=== PATIENT | male | born 1955 | race Caucasian/White ===

== ENCOUNTER 2017-07-06 17:14 | Inpatient (IN) | payer OTHER ==
[2017-07-06] VITALS (11 sets, daily range): BP systolic 91–124; BP diastolic 57–69; PULSE 101–115; RESP 18–20; TEMP 99.1–99.2; O2SAT 92–95
[~2017-07-06] VITALS: Ht 177.8 cm; Wt 78.3 kg
[2017-07-06] MEDS ORDERED: ALPR.5 PO (17:42)
[2017-07-06] MEDS ORDERED: BYST5TAB2 PO (17:42)
--- NOTE | 2017-07-06 17:59 | PD ---
HPI Chief Complaint: Chest Pain Time Seen by Provider: 17:40 Travel History International Travel<30 days: No Contact w/Intl Traveler<30days: No Traveled to known affect area: No History of Present Illness HPI This patient complains of chest pain. Location is left lower chest. Pleuritic in nature, worse with a deep breath. No alleviating factors. Also seems worse when he lies flat. Symptoms are nonexertional. He is a chronic smoker and has a chronic smoker cough but denies productivity to the cough or fever. He flew to [place] from [place] 2 days ago. No chest wall injury. Denies history of cardiac disease. Symptoms are moderately severe. Duration is 5 hours PFSH Past Medical History Medical History: Denies Significant Hx Influenza Vaccination: No Past Surgical History Surgical History: No Previous Surgery Social History Alcohol Use: Yes (occas) Tobacco Use: Yes (3/4 ppd) Substance Use: No Allergies-Medications (Allergen,Severity, Reaction): Coded Allergies: NSAIDS (Non-Steroidal Anti-Inflamma (Verified Allergy, Intermediate, Swelling, 07/06/17) Penicillins (Verified Allergy, Unknown, 07/06/17) Reported Meds & Prescriptions Reported Meds & Active Scripts Active Reported Xanax (Alprazolam) 0.5 Mg Tab 0.5 Mg PO Q8H PRN Bystolic (Nebivolol) 5 Mg Tab 5 Mg PO DAILY Review of Systems General / Constitutional: No: Fever Eyes: No: Visual changes HENT: No: Headaches Cardiovascular: Positive: Chest Pain or Discomfort, Tachycardia Respiratory: Positive: Cough, No: Shortness of Breath Gastrointestinal: No: Abdominal Pain Genitourinary: No: Dysuria Musculoskeletal: No: Pain Skin: No Rash Neurologic: No: Weakness Psychiatric: No: Depression Endocrine: No: Polydipsia Hematologic/Lymphatic: No: Easy Bruising Physical Exam Narrative GENERAL: Well-nourished, well-developed patient with pleuritic chest pain . SKIN: Focused skin assessment reveals no rash and nodules. Skin is Warm and dry. HEAD: Atraumatic. Normocephalic. EYES: Pupils equal and round. No scleral icterus. No injection or drainage. ENT: No nasal bleeding or discharge. Mucous membranes pink and moist. NECK: Trachea midline. No JVD. CARDIOVASCULAR: Regular rate and rhythm. No murmur appreciated. RESPIRATORY: No accessory muscle use. Diminished breath sounds but Clear to auscultation. Breath sounds equal bilaterally. GASTROINTESTINAL: Abdomen soft, non-tender, nondistended. Hepatic and splenic margins not palpable. MUSCULOSKELETAL: No obvious deformities. No clubbing. No cyanosis. No edema. No convincing chest wall tenderness NEUROLOGICAL: Awake and alert. No obvious cranial nerve deficits. Motor grossly within normal limits. Normal speech. PSYCHIATRIC: Appropriate mood and affect; insight and judgment normal. Data Data Last Documented VS Vital Signs Date Time Temp Pulse Resp B/P (MAP) Pulse Ox O2 Delivery O2 Flow Rate FiO2 07/06/17 18:25 94 Nasal Cannula 3.00 07/06/17 18:14 106 20 100/57 (71) 07/06/17 17:44 99.1 Orders Orders Electrocardiogram (07/06/17 17:52) Basic Metabolic Panel (Bmp) (07/06/17 17:52) Ckmb (Isoenzyme) Profile (07/06/17 17:52) Complete Blood Count With Diff (07/06/17 17:52) Prothrombin Time / Inr (Pt) (07/06/17 17:52) Act Partial Throm Time (Ptt) (07/06/17 17:52) Troponin I (07/06/17 17:52) Chest, Single Ap (07/06/17 17:52) Ecg Monitoring (07/06/17 17:52) Iv Access Insert/Monitor (07/06/17 17:52) Oximetry (07/06/17 17:52) Oxygen Administration (07/06/17 17:52) Sodium Chloride 0.9% Flush (Ns Flush) (07/06/17 18:00) Albuterol-Ipratropium Neb (Duoneb Neb) (07/06/17 18:00) CKMB (07/06/17 18:00) CKMB% (07/06/17 18:00) Ct Pulmonary Angiogram (07/06/17 ) Labs Laboratory Tests Test 07/06/17 18:00 Prothrombin Time 10.3 SEC Prothromb Time International Ratio 0.9 RATIO Activated Partial Thromboplast Time 24.5 SEC Blood Urea Nitrogen 16 MG/DL Creatinine 0.87 MG/DL Random Glucose 96 MG/DL Calcium Level 8.6 MG/DL Sodium Level 137 MEQ/L Potassium Level 3.5 MEQ/L Chloride Level 100 MEQ/L Carbon Dioxide Level 24.6 MEQ/L Anion Gap 12 MEQ/L Estimat Glomerular Filtration Rate 90 ML/MIN Total Creatine Kinase 142 U/L Creatine Kinase MB 0.8 NG/ML Troponin I LESS THAN 0.02 NG/ML MDM Medical Decision Making Medical Screen Exam Complete: Yes Emergency Medical Condition: Yes Medical Record Reviewed: Yes Differential Diagnosis PE, pericarditis, COPD Narrative Course I have reviewed the patient's electronic medical record. IV placed I ordered lab studies I reviewed his EKG which shows sinus tachycardia without ectopy or ST elevation I reviewed his chest x-ray shows consolidation versus mass which looks like the left side I gave him a nebulizer treatment Lab studies are normal Patient is a set up for PE given his long flight followed by pleuritic chest pain and tachycardia and marginal saturations Also there is this question of mass in his chest and long smoking history Help resolve his questions have ordered CT pulmonary angiogram Will review with Dr. Rowe to assist with disposition Samuel Guerrero MD Jul 06, 2017 17:59
[2017-07-06] MEDS ORDERED: SODIUM CHLORIDE 0.9% FLUSH 10 ML FLUSH IVF PRN ×2 (18:00→22:00)
[2017-07-06] MEDS ORDERED: RESP: ALBUTEROL 2.5 MG/IPRATROPIUM 0.5 MG NEB (SCH) NEB ONE (18:00)
[2017-07-06 18:12] LABS: CHLORIDE 100 MEQ/L (98-107); POTASSIUM 3.5 MEQ/L (3.5-5.1); SODIUM (NA) 137 MEQ/L (136-145)
--- NOTE | 2017-07-06 18:12 | RADRPT ---
EXAM DATE/TIME: 07/06/2017 17:56 [facility] COMPARISON: No previous studies available for comparison. INDICATIONS : Chest pain. MEDICAL HISTORY : None. SURGICAL HISTORY : None. ENCOUNTER: Initial ACUITY: 1 day PAIN SCORE: 4/10 LOCATION: Left lower chest FINDINGS: There is increased density in the left infrahilar region. Right lung is clear. The heart size is norm al. The costophrenic angles are clear. CONCLUSION: Right infrahilar consolidation or mass. This could be from processes such as infection/ pneumonia dian modesto underlying neoplasm. Jason Fonseca MD on July 06, 2017 at 18:10 Board Certified Radiologist. This report was verified electronically.
[2017-07-06 18:14] LABS: ANION GAP 12 MEQ/L (5-15); BICARBONATE 24.6 MEQ/L (21.0-32.0); BLOOD UREA NITROGEN 16 MG/DL (7-18)
[2017-07-06 18:15] LABS: APTT (PATIENT) 24.5 SEC (24.3-30.1); INTERNATIONAL NORMALIZED RATIO 0.9 RATIO; PROTHROMBIN TIME - PATIENT 10.3 SEC (9.8-11.6)
[2017-07-06 18:17] LABS: GLOMERULAR FILTRATION RATE 90 ML/MIN (>89)
[2017-07-06 18:20] LABS: CREATINE KINASE 142 U/L (39-308)
[2017-07-06 18:33] LABS: CKMB 0.8 NG/ML (0.5-3.6)
[2017-07-06 19:18] LABS: AUTOMATED NEUTROPHIL # 8.1 TH/MM3 (1.8-7.7); BASOPHIL # 0.3 TH/MM3 (0-0.2); BASOPHIL % 2.9 % (0.0-2.0); EOSINOPHIL % 0.1 % (0.0-4.0); HEMO FLAGS DIFF FINAL; LYMPH % 5.9 % (9.0-44.0); LYMPHOCYTE # 0.5 TH/MM3 (1.0-4.8); MEAN CELL VOLUME 91.8 FL (80.0-100.0); MEAN CORPUSCULAR HEMOGLOBIN 31.6 PG (27.0-34.0); MEAN CORPUSCULAR HGB CONC 34.4 % (32.0-36.0); MONO % 2.7 % (0.0-8.0); NEUT % 88.4 % (16.0-70.0); PLATELET COUNT 221 TH/MM3 (150-450); RED BLOOD COUNT 4.35 MIL/MM3 (4.50-5.90); RED CELL DISTRIBUTION WIDTH 13.1 % (11.6-17.2); WHITE BLOOD COUNT 9.1 TH/MM3 (4.0-11.0)
[2017-07-06] MEDS ORDERED: IOHEXOL 350 MG/ML 10 ML VIAL (for RAD DIAG) IVCONTRAST ONE (20:26)
[2017-07-06] MEDS ORDERED: SODIUM CHLOR 0.9% 1000 ML INJ 1,000 ML IV SCH (21:00)
[2017-07-06] MEDS ORDERED: ONDANSETRON HCL 4 MG/2 ML VIAL IV PUSH ONE (21:00)
[2017-07-06] MEDS ORDERED: MORPHINE SULFATE 4 MG/ML INJ IV PUSH ONE ×2 (21:00→23:30)
--- NOTE | 2017-07-06 21:21 | RADRPT ---
EXAM DATE/TIME: 07/06/2017 19:55 [place]RE[place] Corrected on: July 06, 2017; [facility] COMPARISON: CHEST SINGLE AP, July 06, 2017, 17:56. INDICATIONS : Left lower chest pain. IV CONTRAST: 75 cc Omnipaque 350 (iohexol) IV RADIATION DOSE: 13.09 CTDIvol (mGy) MEDICAL HISTORY : None SURGICAL HISTORY : None. ENCOUNTER: Initial ACUITY: 1 day PAIN SCALE: 10/10 LOCATION: Left lower chest TECHNIQUE: Volumetric scanning of the chest was performed using a pulmonary embolism protocol MIP images were re constructed. Using automated exposure control and adjustment of the mA and/or kV according to patien t size, radiation dose was kept as low as reasonably achievable to obtain optimal diagnostic quality images. DICOM format image data is available electronically for review and comparison. Follow-up recommendations for detected pulmonary nodules are based at a minimum on nodule size and pa tient risk factors according to Fleischner Society Guidelines. FINDINGS: PULMONARY ARTERIES: There does appear to be a pulmonary embolus in the pulmonary supplying the left lingula. A pulmonary embolus at the left lower lobe is not clearly seen.. LUNGS: There is dense consolidation throughout much of the left lower lobe. A central mass is not clearly se en but cannot be excluded on this study given the consolidation. The remaining aspects the lungs are clear. PLEURAE: There is no pleural thickening or pleural effusion. MEDIASTINUM: There is good visualization of the great vessels of the middle mediastinum. No evidence of mediastin al or hilar adenopathy/mass. MUSCULOSKELETAL: Within normal limits for patient age. MISCELLANEOUS: The visualized upper abdominal organs demonstrate no acute abnormality. CONCLUSION: 1. Suspected pulmonary embolus at the left lingula.. 2. Dense consolidation throughout the left lower lobe likely related to pneumonia. This should be fol lowed to complete resolution to ensure no underlying lesion is present. Jason Fonseca MD on July 06, 2017 at 21:18 Board Certified Radiologist. This report was verified electronically. Jason Fonseca MD on July 06, 2017 at 23:04 Board Certified Radiologist. This report was verified electronically.
[2017-07-06] MEDS ORDERED: cefTRIAXone INJ 2,000 MG in SODIUM CHLORIDE 0.9% INJ 100 ML IV STA (21:23)
[2017-07-06] MEDS ORDERED: AZITHROMYCIN INJ 500 MG in SODIUM CHLOR 0.9% 250 ML INJ 250 ML IV STA (21:23)
[2017-07-06] MEDS ORDERED: RESP: ALBUTEROL 2.5 MG/IPRATROPIUM 0.5 MG NEB (SCH) INH ONE (21:30)
[2017-07-06] MEDS ORDERED: SODIUM CHLORIDE 0.9% FLUSH 10 ML FLUSH IV FLUSH PRN (21:45)
[2017-07-06] MEDS ORDERED: NALOXONE HCL 0.4 MG/ML AMP IV PUSH PRN (21:45)
[2017-07-06] MEDS ORDERED: ENOXAPARIN SODIUM 80 MG/0.8 ML SYRINGE SQ ONE (23:00)
--- NOTE | 2017-07-06 23:07 | PD ---
Physical Exam Date Seen by Provider: Jul 06, 2017 Time Seen by Provider: 20:00 Narrative accepted in transfer of care from Dr Kaminski Data Data Last Documented VS Vital Signs Date Time Temp Pulse Resp B/P (MAP) Pulse Ox O2 Delivery O2 Flow Rate FiO2 07/06/17 21:34 18 07/06/17 21:33 103 105/67 (80) 95 Nasal Cannula 2.00 07/06/17 17:44 99.1 Orders Orders Electrocardiogram (07/06/17 17:52) Basic Metabolic Panel (Bmp) (07/06/17 17:52) Ckmb (Isoenzyme) Profile (07/06/17 17:52) Complete Blood Count With Diff (07/06/17 17:52) Prothrombin Time / Inr (Pt) (07/06/17 17:52) Act Partial Throm Time (Ptt) (07/06/17 17:52) Troponin I (07/06/17 17:52) Chest, Single Ap (07/06/17 17:52) Ecg Monitoring (07/06/17 17:52) Iv Access Insert/Monitor (07/06/17 17:52) Oximetry (07/06/17 17:52) Oxygen Administration (07/06/17 17:52) Sodium Chloride 0.9% Flush (Ns Flush) (07/06/17 18:00) Albuterol-Ipratropium Neb (Duoneb Neb) (07/06/17 18:00) CKMB (07/06/17 18:00) CKMB% (07/06/17 18:00) Ct Pulmonary Angiogram (07/06/17 ) Iohexol 350 Inj (Omnipaque 350 Inj) (07/06/17 20:26) Sodium Chlor 0.9% 1000 Ml Inj (Ns 1000 M (07/06/17 21:00) Ondansetron Inj (Zofran Inj) (07/06/17 21:00) Morphine Inj (Morphine Inj) (07/06/17 21:00) Blood Culture (07/06/17 21:23) Lactic Acid (07/06/17 21:23) Ceftriaxone Inj (Rocephin Inj) (07/06/17 21:23) Azithromycin Inj (Zithromax Inj) (07/06/17 21:23) Albuterol-Ipratropium Neb (Duoneb Neb) (07/06/17 21:30) Place In Observation (07/06/17 ) Vital Signs (Adult) Q4H (07/06/17 21:38) Activity Oob With Assistance (07/06/17 21:38) Record Center Coordinator / Telemetry .CONTINUOUS (07/06/17 21:38) Diet Heart Healthy (07/07/17 Breakfast) Sodium Chloride 0.9% Flush (Ns Flush) (07/06/17 21:45) Sodium Chloride 0.9% Flush (Ns Flush) (07/07/17 09:00) Basic Metabolic Panel (Bmp) (07/07/17 06:00) Complete Blood Count With Diff (07/07/17 06:00) Case Management Consult (07/06/17 21:38) Naloxone Inj (Narcan Inj) (07/06/17 21:45) Labs Laboratory Tests Test 07/06/17 18:00 White Blood Count 9.1 TH/MM3 Red Blood Count 4.35 MIL/MM3 Hemoglobin 13.8 GM/DL Hematocrit 40.0 % Mean Corpuscular Volume 91.8 FL Mean Corpuscular Hemoglobin 31.6 PG Mean Corpuscular Hemoglobin Concent 34.4 % Red Cell Distribution Width 13.1 % Platelet Count 221 TH/MM3 Mean Platelet Volume 7.5 FL Neutrophils (%) (Auto) 88.4 % Lymphocytes (%) (Auto) 5.9 % Monocytes (%) (Auto) 2.7 % Eosinophils (%) (Auto) 0.1 % Basophils (%) (Auto) 2.9 % Neutrophils # (Auto) 8.1 TH/MM3 Lymphocytes # (Auto) 0.5 TH/MM3 Monocytes # (Auto) 0.2 TH/MM3 Eosinophils # (Auto) 0.0 TH/MM3 Basophils # (Auto) 0.3 TH/MM3 CBC Comment DIFF FINAL Differential Comment Prothrombin Time 10.3 SEC Prothromb Time International Ratio 0.9 RATIO Activated Partial Thromboplast Time 24.5 SEC Blood Urea Nitrogen 16 MG/DL Creatinine 0.87 MG/DL Random Glucose 96 MG/DL Calcium Level 8.6 MG/DL Sodium Level 137 MEQ/L Potassium Level 3.5 MEQ/L Chloride Level 100 MEQ/L Carbon Dioxide Level 24.6 MEQ/L Anion Gap 12 MEQ/L Estimat Glomerular Filtration Rate 90 ML/MIN Total Creatine Kinase 142 U/L Creatine Kinase MB 0.8 NG/ML Troponin I LESS THAN 0.02 NG/ML [facility] Medical Record Reviewed: Yes Supervised Visit with JAYDON: No Interpretation(s) at 9:[address] pulmonary angiogram: NO PE per reading radiologist Dr Fonseca; large consolidation left lower lobe c/w pneumonia. Last Impressions Chest X-Ray 07/06/17 0762 Signed Impressions: Service Date/Time: Thursday, July 06, 2017 17:56 - CONCLUSION: Right infrahilar consolidation or mass. This could be from processes such as infection/ pneumonia versus underlying neoplasm. Jason Fonseca MD CBC & BMP Diagram 07/06/17 18:00 Calcium Level 8.6 Vital Signs Date Time Temp Pulse Resp B/P (MAP) Pulse Ox O2 Delivery O2 Flow Rate FiO2 07/06/17 21:33 103 18 105/67 (80) 95 Nasal Cannula 2.00 07/06/17 20:00 101 20 121/66 (84) 95 Nasal Cannula 2.00 07/06/17 19:00 102 20 91/58 (69) 95 Nasal Cannula 2.00 07/06/17 19:00 102 20 95 Room Air 07/06/17 18:25 94 Nasal Cannula 3.00 07/06/17 18:16 93 Nasal Cannula 3.00 07/06/17 18:14 106 20 100/57 (71) 92 Nasal Cannula 2.00 07/06/17 18:01 92 Nasal Cannula 2.00 07/06/17 18:01 20 92 Nasal Cannula 2.00 07/06/17 18:00 94 Nasal Cannula 2.00 07/06/17 17:44 99.1 115 18 92 Room Air 07/06/17 17:44 92 Room Air 07/06/17 17:29 99.2 113 18 123/59 (80) 92 CT pulmonary angiogram: CONCLUSION: 1. Suspected pulmonary embolus at the left lingula.. 2. Dense consolidation throughout the left lower lobe likely related to pneumonia. This should be followed to complete resolution to ensure no underlying lesion is present. Jason Fonseca MD on July 06, 2017 at 21:18 Board Certified Radiologist. This report was verified electronically. Jason Fonseca MD on July 06, 2017 at 23:04 Board Certified Radiologist. This report was verified electronically. Differential Diagnosis accepted in transfer of care from Dr Patel; please refer to his dictation Narrative Course Patient resting comfortably waiting for CT results complains of intermittent pleuritic pain Patient with ongoing pain now requesting pain medication administered Zofran 4 mg IV and morphine sulfate 3 mg IV with symptom improvement; CT pulmonary angiogram pending CT resulted --per reading radiologist no PE --patient and spouse informed Discussed CT pulmonary angiogram with reading radiologist, as radiologist report notes no pulmonary embolism, due to patient's presentation very concerning for pulmonary embolism with tachycardia sudden onset shortness of breath recent long distance travel by plane from [place] without recent febrile illness productive cough chills or leukocytosis; therefore asked drilling contractor to re-read the CT pulmonary angiogram and now reports that in the left lingular distribution there is a partial occlusion of the vessel and Dr Fonseca states that he will addend the report to indicate that the patient does have a pulmonary embolism in the lingula distribution although there is good blood flow and no evidence of embolic event to the left lower lung where the large consolidation is identified. Heparinization of the patient has been ordered; patient continues to remain tachycardic with pleuritic pain O2 saturations 92% on 2 L after receiving morphine for pain. Patient's admitting physician has been updated regarding reread of the CT pulmonary angiogram by radiologist; the admitting physician is aware that patient is being heparinized and the previous Lovenox has been discontinued and was not administered; patient will be admitted to the ICU. Patient reassessed saturations are now 91% on 2 L patient's case discussed with automotive service director --- will admit to ICU Friend contact: Dr Jason Leary [phone] Physician Communication Physician Communication discussed with Dr Adame; discussed with Dr Fonseca; Discussed with Dr Lee Diagnosis Primary Impression: Pulmonary embolism Qualified Codes: I26.99 - Other pulmonary embolism without acute cor pulmonale Additional Impressions: Pulmonary infiltrate on radiologic exam Pleurisy without effusion Admitting Information Admitting Physician Requests: Admit Rona Rowe MD Jul 06, 2017 23:07
[2017-07-06] MEDS: AZITHROMYCIN INJ 500 MG in SODIUM CHLOR 0.9% 250 ML INJ 250 ML IV SCH (23:10)
[2017-07-06] MEDS ORDERED: HEPARIN-D5W 25,000 U/250 ML 250 ML IV PRN (23:15)
[2017-07-06] MEDS ORDERED: HEPARIN SODIUM - IV 10,000 UNITS/10 ML VIAL IV PUSH ONE (23:15)
[2017-07-07] VITALS (18 sets, daily range): BP systolic 99–132; BP diastolic 51–87; PULSE 80–122; RESP 18–34; TEMP 97.5–99.7; O2SAT 91–99
--- NOTE | 2017-07-07 00:33 | RADRPT ---
EXAM DATE/TIME: 07/06/2017 23:55 [facility] COMPARISON: CT PULMONARY ANGIOGRAM, July 06, 2017, 19:55. INDICATIONS : Bilateral leg pain. MEDICAL HISTORY : Smoker. Leg pain. SURGICAL HISTORY : None. ENCOUNTER: Initial ACUITY: 1 day PAIN SCORE: 7/10 LOCATION: Bilateral leg. TECHNIQUE: Venous ultrasound of the left and right leg was performed from the inguinal ligament to the proximal calf. Real-time, color Doppler and spectral tracing, compression and augmentation techniques were us ed. FINDINGS: RIGHT LEG: There is normal compressibility of the deep venous system from the inguinal region to the proximal ca lf. No echogenic clot is seen in the lumen of the common femoral, femoral, popliteal, and posterior tibial veins. There is a normal response of the venous system to proximal and distal augmentation an d respiration. LEFT LEG: There is normal compressibility of the deep venous system from the inguinal region to the proximal ca lf. No echogenic clot is seen in the lumen of the common femoral, femoral, popliteal, and posterior tibial veins. There is a normal response of the venous system to proximal and distal augmentation an d respiration. CONCLUSION: No venous thrombosis of either lower extremity. Jason Jessica MD on July 07, 2017 at 0:29 Board Certified Radiologist. This report was verified electronically.
[2017-07-07] MEDS ORDERED: ACETAMINOPHEN 325 MG TAB PO PRN (05:15)
[2017-07-07] MEDS ORDERED: MAGNESIUM HYDROXIDE SUSP 30 ML CUP PO PRN (05:15)
[2017-07-07] MEDS ORDERED: LACTULOSE SYRUP 20 GM/30 ML CUP PO PRN (05:15)
[2017-07-07] MEDS ORDERED: RESP: ALBUTEROL 2.5 MG/IPRATROPIUM 0.5 MG NEB (PRN) INH (05:15)
[2017-07-07] MEDS ORDERED: SODIUM CHLORIDE 0.9% FLUSH 10 ML FLUSH IV FLUSH PRN (05:15)
[2017-07-07] MEDS ORDERED: MISCELLANEOUS NURSING INFORMATION XX SCH (05:15)
[2017-07-07] MEDS ORDERED: BISACODYL 10 MG SUPP RECTAL PRN (05:15)
[2017-07-07] MEDS ORDERED: CHLORHEXIDINE GLUCONATE 2 % 1 PACK (2 CLOTHS) TOP PRN (05:15)
[2017-07-07] MEDS ORDERED: SENNOSIDES 8.6 MG TAB PO PRN (05:15)
[2017-07-07] MEDS ORDERED: HEPARIN-D5W 25,000 U/250 ML 250 ML IV PRN (05:15)
[2017-07-07] MEDS ORDERED: ONDANSETRON HCL 4 MG/2 ML VIAL IV PUSH PRN (05:15)
--- NOTE | 2017-07-07 05:22 | HHI.HP ---
HPI Service Critical Care Medicine Primary Care Physician Non-Staff Admission Diagnosis LLL infiltrate/pneumonia; pleurisy Diagnosis: Travel History International Travel<30 Days: No Contact w/Intl Traveler <30 Da: No Traveled to Known Affected Are: No History of Present Illness 62-year-old gentleman who presents with complains of chest pain localized in the left lower chest, pleuritic in nature worse in the deep breath. No alleviating factors. He flew to [place] from [place] 2 days ago. No chest wall injury. Denies history of cardiac disease. Also seems worse when he lies flat. He is a chronic smoker and has a chronic smoker cough but denies productivity to the cough or fever. The CTA pulmonary embolism scan initially was read as an no pulmonary embolism, however after the second review there is a concern raised of small pulmonary embolism in the lingula, and right lower lobe consolidation consistent with pneumonia. Review of Systems Constitutional: DENIES: Diaphoretic episodes, Fatigue, Fever, Weight gain, Weight loss, Chills, Dizziness, Change in appetite, Night Sweats Endocrine: DENIES: Heat/cold intolerance, Polydipsia, Polyuria, Polyphagia Eyes: DENIES: Blurred vision, Diplopia, Eye inflammation, Eye pain, Vision loss , Photosensitivity, Double Vision Ears, nose, mouth, throat: DENIES: Tinnitus, Hearing loss, Vertigo, Nasal discharge, Oral lesions, Throat pain, Hoarseness, Ear Pain, Running Nose, Epistaxis, Sinus Pain, Toothache, Odynophagia Respiratory: DENIES: Apneas, Cough, Snoring, Wheezing, Hemoptysis, Sputum production, Shortness of breath Cardiovascular: COMPLAINS OF: Chest pain, DENIES: Palpitations, Syncope, Dyspnea on Exertion, PND, Lower Extremity Edema, Orthopnea, Claudication Gastrointestinal: DENIES: Abdominal pain, Black stools, Bloody stools, Constipation, Diarrhea, Nausea, Vomiting, Difficulty Swallowing, Anorexia Genitourinary: DENIES: Sexual dysfunction, Urinary frequency, Urinary incontinence, Urgency, Hematuria, Dysuria, Nocturia, Penile Discharge, Testicular Pain, Testicular Swelling Musculoskeletal: DENIES: Joint pain, Muscle aches, Stiffness, Joint Swelling, Back pain, Neck pain Integumentary: DENIES: Abnormal pigmentation, Nail changes, Pruritus, Rash Hematologic/lymphatic: DENIES: Bruising, Lymphadenopathy Immunologic/allergic: DENIES: Eczema, Urticaria Neurologic: DENIES: Abnormal gait, Headache, Localized weakness, Paresthesias, Seizures, Speech Problems, Tremor, Poor Balance Psychiatric: DENIES: Anxiety, Confusion, Mood changes, Depression, Hallucinations, Agitation, Suicidal Ideation, Homicidal Ideation, Delusions Past Family Social History Allergies: Coded Allergies: NSAIDS (Non-Steroidal Anti-Inflamma (Verified Allergy, Intermediate, Swelling, 07/06/17) Penicillins (Verified Allergy, Unknown, 07/06/17) Past Medical History Hypertension Past Surgical History No significant past surgical history Reported Medications Reported Meds & Active Scripts Active Reported Xanax (Alprazolam) 0.5 Mg Tab 0.5 Mg PO Q8H PRN Bystolic (Nebivolol) 5 Mg Tab 5 Mg PO DAILY Active Ordered Medications Current Medications Medications (Trade) Dose Ordered Sig/Flaco Route PRN Reason Start Time Stop Time Status Last Admin Dose Admin Sodium Chloride 1,000 ml @ 125 mls/hr Q8H IV 07/06/17 21:00 07/06/17 21:05 Sodium Chloride (NS Flush) 2 ml UNSCH PRN IV FLUSH FLUSH AFTER USING IV ACCESS 07/06/17 21:45 Sodium Chloride (NS Flush) 2 ml BID IV FLUSH 07/07/17 09:00 Naloxone HCl (Narcan Inj) 0.4 mg UNSCH PRN IV PUSH SEE LABEL COMMENTS 07/06/17 21:45 Ceftriaxone Sodium 1000 mg/ Sodium Chloride 100 ml @ 200 mls/hr Q24H IV 07/07/17 21:00 Azithromycin 500 mg/Sodium Chloride 250 ml @ 250 mls/hr Q24H IV 07/07/17 21:00 07/06/17 23:10 Heparin Sodium/ Dextrose 250 ml @ 13.68 mls/ hr TITRATE PRN IV Coagulation management 07/06/17 23:15 07/07/17 00:31 Family History No family history significant of early coronary artery disease Social History Smoker Denies alcohol or illicit drug abuse Physical Exam Vital Signs Vital Signs Date Time Temp Pulse Resp B/P (MAP) Pulse Ox O2 Delivery O2 Flow Rate FiO2 07/07/17 04:00 92 Nasal Cannula 4.00 07/07/17 04:00 98.6 110 24 102/56 (71) 92 07/07/17 03:21 07/07/17 03:13 120 18 116/67 (83) 92 Nasal Cannula 2.00 07/07/17 02:13 122 18 121/66 (84) 93 Nasal Cannula 2.00 07/07/17 01:13 120 18 132/72 (92) 91 Nasal Cannula 2.00 07/07/17 00:57 99.7 118 18 132/72 (92) 92 Nasal Cannula 2.00 07/07/17 00:13 120 20 126/87 (100) 92 Nasal Cannula 2.00 07/06/17 23:49 18 07/06/17 23:13 110 20 124/64 (84) 92 Nasal Cannula 2.00 07/06/17 22:13 104 18 124/69 (87) 95 Nasal Cannula 2.00 07/06/17 21:50 95 Nasal Cannula 2.00 07/06/17 21:34 18 07/06/17 21:33 103 18 105/67 (80) 95 Nasal Cannula 2.00 07/06/17 20:00 101 20 121/66 (84) 95 Nasal Cannula 2.00 07/06/17 19:00 102 20 91/58 (69) 95 Nasal Cannula 2.00 07/06/17 19:00 102 20 95 Room Air 07/06/17 18:25 94 Nasal Cannula 3.00 07/06/17 18:16 93 Nasal Cannula 3.00 07/06/17 18:14 106 20 100/57 (71) 92 Nasal Cannula 2.00 07/06/17 18:01 92 Nasal Cannula 2.00 07/06/17 18:01 20 92 Nasal Cannula 2.00 07/06/17 18:00 94 Nasal Cannula 2.00 07/06/17 17:44 99.1 115 18 92 Room Air 07/06/17 17:44 92 Room Air 07/06/17 17:29 99.2 113 18 123/59 (80) 92 Physical Exam GENERAL: Well-nourished, well-developed patient. SKIN: Warm and dry. HEAD: Normocephalic. EYES: No scleral icterus. No injection or drainage. NECK: Supple, trachea midline. No JVD or lymphadenopathy. CARDIOVASCULAR: Regular rate and rhythm without murmurs, gallops, or rubs. RESPIRATORY: Breath sounds equal bilaterally. No accessory muscle use. GASTROINTESTINAL: Abdomen soft, non-tender, nondistended. MUSCULOSKELETAL: No cyanosis, or edema. BACK: Nontender without obvious deformity. NEURO EXAM: GCS: M 6 V 5 E4 Mental Status: The patient is alert and oriented to person, place, and time with normal speech. Cranial Nerves: Visual acuity intact bilaterally. Visual loco normal in all quadrants. Pupils are round, reactive to light. Extraocular movements are intact without ptosis. Hearing is normal bilaterally. Voice is normal. Tongue protrudes midline and moves symmetrically. Reflexes: Biceps, patellar, and Achilles are 2/4 bilaterally. No clonus. Laboratory Laboratory Tests Test 07/06/17 18:00 07/06/17 21:55 07/06/17 22:05 07/07/17 04:00 White Blood Count 9.1 Red Blood Count 4.35 Hemoglobin 13.8 Hematocrit 40.0 Mean Corpuscular Volume 91.8 Mean Corpuscular Hemoglobin 31.6 Mean Corpuscular Hemoglobin Concent 34.4 Red Cell Distribution Width 13.1 Platelet Count 221 Mean Platelet Volume 7.5 Neutrophils (%) (Auto) 88.4 Lymphocytes (%) (Auto) 5.9 Monocytes (%) (Auto) 2.7 Eosinophils (%) (Auto) 0.1 Basophils (%) (Auto) 2.9 Neutrophils # (Auto) 8.1 Lymphocytes # (Auto) 0.5 Monocytes # (Auto) 0.2 Eosinophils # (Auto) 0.0 Basophils # (Auto) 0.3 CBC Comment DIFF FINAL Differential Comment Prothrombin Time 10.3 Prothromb Time International Ratio 0.9 Activated Partial Thromboplast Time 24.5 Blood Urea Nitrogen 16 Creatinine 0.87 Random Glucose 96 Calcium Level 8.6 Sodium Level 137 Potassium Level 3.5 Chloride Level 100 Carbon Dioxide Level 24.6 Anion Gap 12 Estimat Glomerular Filtration Rate 90 Total Creatine Kinase 142 Creatine Kinase MB 0.8 Troponin I LESS THAN 0.02 D-Dimer Quantitative (PE/DVT) 0.71 Lactic Acid Level 4.0 Date/Time Source Procedure Growth Status 07/06/17 22:10 Blood Peripheral Aerobic Blood Culture Pending Received 07/06/17 22:10 Blood Peripheral Anaerobic Blood Culture Pending Received Result Diagram: 07/06/17 1800 07/06/17 1800 Imaging Last 24 hours Impressions Chest X-Ray 07/06/17 [id number] Signed Impressions: Service Date/Time: Thursday, July 06, 2017 17:56 - CONCLUSION: Right infrahilar consolidation or mass. This could be from processes such as infection/ pneumonia versus underlying neoplasm. Jason Fonseca MD Caprini VTE Risk Assessment Caprini VTE Risk Assessment: Mod/High Risk (score >= 2) Caprini Risk Assessment Model Point Value = 1 Point Value = 2 Point Value = 3 Point Value = 5 Age 41-60 Minor surgery BMI > 25 kg/m2 Swollen legs Varicose veins or History of unexplained or recurrent spontaneous Oral contraceptives or hormone replacement Sepsis (< 1 month) Serious lung disease, including pneumonia (< 1 month) Abnormal pulmonary function Acute myocardial infarction Congestive heart failure (< 1 month) History of inflammatory bowel disease Medical patient at bed rest Age 61-74 Arthroscopic surgery Major open surgery (> 45 min) Laparoscopic surgery (> 45 min) Malignancy Confined to bed (> 72 hours) Immobilizing plaster cast Central venous access Age >= 75 History of VTE Family history of VTE Factor V Leiden Prothrombin [id number] Lupus anticoagulant Anticardiolipin antibodies Elevated serum homocysteine Heparin-induced thrombocytopenia Other congenital or acquired thrombophilia Stroke (< 1 month) Elective arthroplasty Hip, pelvis, or leg fracture Acute spinal cord injury (< 1 month) Prophylaxis Regimen Total Risk Factor Score Risk Level Prophylaxis Regimen 0-1 Low Early ambulation 2 Moderate Order ONE of the following: *Sequential Compression Device (SCD) *Heparin 5000 units SQ BID 3-4 Higher Order ONE of the following medications: *Heparin 5000 units SQ TID *Enoxaparin/Lovenox 40 mg SQ daily (WT < 150 kg, CrCl > 30 mL/min) *Enoxaparin/Lovenox 30 mg SQ daily (WT < 150 kg, CrCl > 10-29 mL/min) *Enoxaparin/Lovenox 30 mg SQ BID (WT < 150 kg, CrCl > 30 mL/min) AND/OR *Sequential Compression Device (SCD) 5 or more Highest Order ONE of the following medications: *Heparin 5000 units SQ TID (Preferred with Epidurals) *Enoxaparin/Lovenox 40 mg SQ daily (WT < 150 kg, CrCl > 30 mL/min) *Enoxaparin/Lovenox 30 mg SQ daily (WT < 150 kg, CrCl > 10-29 mL/min) *Enoxaparin/Lovenox 30 mg SQ BID (WT < 150 kg, CrCl > 30 mL/min) AND *Sequential Compression Device (SCD) Assessment and Plan Assessment and Plan Pulmonary embolism - Heparin drip - 2-D echo - Troponins - EKGs Pneumonia - Broad-spectrum antibiotics - De-escalate per sensitivity - Pancultures Hypertension - Home dose of Bystolic DVT GI prophylaxis - Teds SCDs - Heparin drip - Pepcid Critical Care: The total critical care time was 35 minutes. Time to perform other separately billable procedures was not included in the critical care time. Vineet Lee MD Jul 07, 2017 05:22
[2017-07-07] MEDS: MORPHINE SULFATE 4 MG/ML INJ IV PUSH PRN (05:48)
[2017-07-07] MEDS: SODIUM CHLOR 0.9% 1000 ML INJ 1,000 ML IV SCH ×2 (05:49→17:01)
[2017-07-07] MEDS: AZTREONAM INJ 2,000 MG in SODIUM CHLORIDE 0.9% INJ 100 ML IV SCH ×3 (06:05→21:15)
[2017-07-07] MEDS: LEVOFLOXACIN 750 MG PREMIX INJ 150 ML IV SCH (06:06)
[2017-07-07 06:47] LABS: AUTOMATED NEUTROPHIL # 3.1 TH/MM3 (1.8-7.7); BASOPHIL % 0.4 % (0.0-2.0); EOSINOPHIL % 0.1 % (0.0-4.0); HEMATOCRIT 36.8 % (39.0-51.0); HEMO FLAGS AUTO DIFF; LYMPH % 16.6 % (9.0-44.0); LYMPHOCYTE # 0.7 TH/MM3 (1.0-4.8); MEAN CELL VOLUME 94.4 FL (80.0-100.0); MEAN CORPUSCULAR HEMOGLOBIN 32.1 PG (27.0-34.0); MONO % 4.7 % (0.0-8.0); NEUT % 78.2 % (16.0-70.0); PLATELET COUNT 160 TH/MM3 (150-450); RED CELL DISTRIBUTION WIDTH 14.1 % (11.6-17.2); WHITE BLOOD COUNT 3.9 TH/MM3 (4.0-11.0)
[2017-07-07 06:49] LABS: ANION GAP 14 MEQ/L (5-15); BICARBONATE 20.8 MEQ/L (21.0-32.0); BLOOD UREA NITROGEN 15 MG/DL (7-18); CHLORIDE 102 MEQ/L (98-107); GLOMERULAR FILTRATION RATE 56 ML/MIN (>89); POTASSIUM 3.6 MEQ/L (3.5-5.1); SODIUM (NA) 137 MEQ/L (136-145)
[2017-07-07 06:49] LABS: INTERNATIONAL NORMALIZED RATIO 1.1 RATIO
[2017-07-07 06:55] LABS: APTT (PATIENT) GREATER THAN 277.5 SEC (24.3-30.1)
[2017-07-07 08:35] LABS: BANDS 28 % (0-6); METAMYELOCYTES 12 % (0-1); MYELOCYTES 11 % (0-0); POLYS (SEG NEUTROPHILS) 25 % (16-70); WBC DIFF SAMPLE 100
[2017-07-07 08:38] LABS: PLATELET ESTIMATE SMEAR NORMAL (NORMAL); PLATELET MORPHOLOGY NORMAL (NORMAL); SCAN/DIFF FINAL DIFF MANUAL
[2017-07-07 08:44] LABS: DOHLE BODIES PRESENT (NONE SEEN)
--- NOTE | 2017-07-07 08:46 | EKG ---
Date Performed: 07/06/2017 Time Performed: 18:15:41 PTAGE: 62 years EKG: SINUS TACHYCARDIA WITH SHORT OH INTERVAL ABNORMAL RHYTHM ECG NO PREVIOUS TRACING DOCTOR: Nisa Don Interpretating Date/Time 07/07/2017 08:44:58
[2017-07-07] MEDS: SODIUM CHLORIDE 0.9% FLUSH 10 ML FLUSH IV FLUSH SCH ×4 (09:00→21:00)
[2017-07-07] MEDS ORDERED: SODIUM CHLORIDE 0.9% FLUSH 10 ML FLUSH IV FLUSH SCH (09:00)
[2017-07-07] MEDS: RESP: ALBUTEROL 2.5 MG/IPRATROPIUM 0.5 MG NEB (SCH) INH ×3 (09:19→19:47)
[2017-07-07] MEDS: FAMOTIDINE 20 MG/2 ML VIAL IV PUSH SCH ×2 (09:34→21:02)
[2017-07-07] MEDS: DOCUSATE SODIUM 50 MG/SENNA 8.6 MG TAB PO SCH ×2 (09:34→21:00)
[2017-07-07] MEDS: oxyCODONE/ACETAMINOPHEN 5 MG/325 MG TAB PO PRN ×2 (09:35→21:01)
[2017-07-07 10:00] LABS: APTT (PATIENT) 130.5 SEC (24.3-30.1)
[2017-07-07] MEDS ORDERED: HEPARIN SODIUM - IV 10,000 UNITS/10 ML VIAL IV PUSH PRN (11:15)
[2017-07-07] MEDS ORDERED: HEPARIN - 10,000 UNITS/ML IV ADDITIVE IV PUSH PRN (11:15)
[2017-07-07] MEDS: NEBIVOLOL 5 MG TAB PO SCH (12:07)
[2017-07-07 12:47] LABS: APTT (PATIENT) 53.2 SEC (24.3-30.1)
[2017-07-07 14:35] LABS: APTT (PATIENT) 42.1 SEC (24.3-30.1)
--- NOTE | 2017-07-07 16:41 | EKG ---
Date Performed: 07/07/2017 Time Performed: 10:54:50 PTAGE: 62 years EKG: SINUS TACHYCARDIA Compared to prior tracing no significant change ABNORMAL RHYTHM ECG PREVIOUS TRACING : 07/06/2017 18.15 DOCTOR: Nisa Don Interpretating Date/Time 07/07/2017 16:37:55
[2017-07-07 17:07] LABS: APTT (PATIENT) 48.3 SEC (24.3-30.1)
--- NOTE | 2017-07-07 17:57 | ECHRPT ---
Indication: sob CONCLUSIONS The left ventricular systolic function is severely reduced with an estimated ejection fraction in th e range of 30-35%. There is diffuse global hypokinesis with distinct regional wall motion abnormalities. [id number] mitral valve regurgitation. There is mild tricuspid valve regurgitation. BP: / HR: Rhythm: MEASUREMENTS (Male / Female) Normal Values Technical Quality:Good 2D ECHO LV Diastolic Diameter PLAX 5.5 cm 4.2 - 5.9 / 3.9 - 5.3 cm LV Systolic Diameter PLAX 4.7 cm IVS Diastolic Thickness 0.7 cm 0.6 - 1.0 / 0.6 - 0.9 cm LVPW Diastolic Thickness 0.9 cm 0.6 - 1.0 / 0.6 - 0.9 cm LV Relative Wall Thickness 0.3 RV Internal Dim ED PLAX 2.3 cm M-MODE Aortic Root Diameter MM 3.1 cm LA Systolic Diameter MM 3.5 cm LA Ao Ratio MM 1.1 AV Cusp Separation MM 2.0 cm DOPPLER Mitral E Point Velocity 68.1 cm/s Mitral A Point Velocity 53.8 cm/s Mitral E to A Ratio 1.3 LV E' Lateral Velocity 14.7 cm/s Mitral E to LV E' Lateral Ratio 4.6 LV E' Septal Velocity 11.9 cm/s Mitral E to LV E' Septal Ratio 5.7 FINDINGS LEFT VENTRICLE The left ventricular systolic function is severely reduced with an estimated ejection fraction in th e range of 30-35%. Wall thickness is normal. Normal left ventricular size. Left ventricular diastolic function parameters are normal. There is diffuse global hypokinesis with distinct regional wall motion abnormalities. RIGHT VENTRICLE Right ventricular size and systolic function are grossly normal. LEFT ATRIUM The left atrial size is normal. RIGHT ATRIUM The right atrial size is normal. ATRIAL SEPTUM Normal atrial septal thickness without atrial level shunting by limited color doppler interrogation. AORTA The aortic root and proximal ascending aorta are normal in size on limited imaging. MITRAL VALVE Structurally normal mitral valve. Vhivo-yj-omza mitral valve regurgitation. Mild mitral annular calcification. AORTIC VALVE Trileaflet aortic valve. No aortic valve regurgitation. TRICUSPID VALVE Structurally normal tricuspid valve. There is mild tricuspid valve regurgitation. PULMONARY VALVE The pulmonary valve is not well visualized. VESSELS The inferior vena cava is normal in size. PERICARDIUM No pericardial effusion. Sal[place] Dorman DO (Electronically Signed) Final Date:07 July 2017 17:56
[2017-07-07 20:35] LABS: APTT (PATIENT) 78.4 SEC (24.3-30.1)
[2017-07-07] MEDS: ZOLPIDEM TARTRATE 5 MG TAB PO PRN (21:01)
[2017-07-07] MEDS: ALPRAZolam 0.5 MG TAB PO PRN (21:01)
[2017-07-07] MEDS: AZITHROMYCIN INJ 500 MG in SODIUM CHLOR 0.9% 250 ML INJ 250 ML IV SCH (21:03)
[2017-07-07] MEDS: cefTRIAXone INJ 1,000 MG in SODIUM CHLORIDE 0.9% INJ 100 ML IV SCH (21:03)
[2017-07-08] VITALS (13 sets, daily range): BP systolic 96–143; BP diastolic 52–69; PULSE 87–108; RESP 16–24; TEMP 97.1–99.5; O2SAT 96–99
[2017-07-08] MEDS: CHLORHEXIDINE GLUCONATE 2 % 1 PACK (2 CLOTHS) TOP SCH (04:00)
[2017-07-08] MEDS: RESP: ALBUTEROL 2.5 MG/IPRATROPIUM 0.5 MG NEB (SCH) INH ×4 (04:02→21:37)
[2017-07-08] MEDS: SODIUM CHLOR 0.9% 1000 ML INJ 1,000 ML IV SCH ×2 (04:34→11:51)
[2017-07-08] MEDS: LEVOFLOXACIN 750 MG PREMIX INJ 150 ML IV SCH (04:34)
[2017-07-08] MEDS: AZTREONAM INJ 2,000 MG in SODIUM CHLORIDE 0.9% INJ 100 ML IV SCH ×3 (04:34→22:30)
--- NOTE | 2017-07-08 05:39 | RADRPT ---
EXAM DATE/TIME: 07/08/2017 04:04 [facility] COMPARISON: CHEST SINGLE AP, July 06, 2017, 17:56. INDICATIONS : Shortness of breath. MEDICAL HISTORY : None. SURGICAL HISTORY : None. ENCOUNTER: Subsequent ACUITY: 3 days PAIN SCORE: 3/10 LOCATION: Bilateral chest FINDINGS: Basilar consolidation with a small pleural effusion seen on the left, worse. Right lung remains clear . No pneumothorax. Heart size stable and within normal limits. CONCLUSION: Worsening left lower lobe consolidation. Jason Jessica MD on July 08, 2017 at 5:37 Board Certified Radiologist. This report was verified electronically.
[2017-07-08 05:45] LABS: AUTOMATED NEUTROPHIL # 9.9 TH/MM3 (1.8-7.7); BASOPHIL % 0.2 % (0.0-2.0); EOSINOPHIL % 0.4 % (0.0-4.0); LYMPH % 9.4 % (9.0-44.0); LYMPHOCYTE # 1.1 TH/MM3 (1.0-4.8); MEAN CORPUSCULAR HGB CONC 33.3 % (32.0-36.0); MONO % 2.6 % (0.0-8.0); NEUT % 87.4 % (16.0-70.0); PLATELET COUNT 138 TH/MM3 (150-450); RED BLOOD COUNT 3.75 MIL/MM3 (4.50-5.90); RED CELL DISTRIBUTION WIDTH 14.1 % (11.6-17.2); WHITE BLOOD COUNT 11.4 TH/MM3 (4.0-11.0)
[2017-07-08 05:52] LABS: APTT (PATIENT) 84.9 SEC (24.3-30.1); PROTHROMBIN TIME - PATIENT 11.5 SEC (9.8-11.6)
[2017-07-08 05:55] LABS: ANION GAP 9 MEQ/L (5-15); AST (GOT) 30 U/L (15-37); BICARBONATE 25.8 MEQ/L (21.0-32.0); BLOOD UREA NITROGEN 12 MG/DL (7-18); CHLORIDE 104 MEQ/L (98-107); GLOMERULAR FILTRATION RATE 99 ML/MIN (>89); MAGNESIUM 1.3 MG/DL (1.5-2.5); POTASSIUM 3.4 MEQ/L (3.5-5.1); SODIUM (NA) 139 MEQ/L (136-145)
[2017-07-08 05:56] LABS: ALT (GPT) 27 U/L (12-78)
[2017-07-08 05:58] LABS: ALKALINE PHOSPHATASE 38 U/L (45-117); TOTAL BILIRUBIN ADULT 0.3 MG/DL (0.2-1.0)
[2017-07-08 05:59] LABS: HEMO FLAGS AUTO DIFF
[2017-07-08] MEDS: SODIUM CHLORIDE 0.9% FLUSH 10 ML FLUSH IV FLUSH SCH ×3 (09:00→21:38)
[2017-07-08 09:22] LABS: BANDS 38 % (0-6); EOSINOPHILS 2 % (0-4); NEUTROPHIL # MANUAL DIFF 9.8 TH/MM3 (1.8-7.7); PLATELET ESTIMATE SMEAR LOW (NORMAL); PLATELET MORPHOLOGY NORMAL (NORMAL); POLYS (SEG NEUTROPHILS) 48 % (16-70); SCAN/DIFF FINAL DIFF MANUAL; WBC DIFF SAMPLE 100
[2017-07-08] MEDS: NEBIVOLOL 5 MG TAB PO SCH (11:41)
[2017-07-08] MEDS: FAMOTIDINE 20 MG/2 ML VIAL IV PUSH SCH ×2 (11:41→21:37)
[2017-07-08] MEDS: DOCUSATE SODIUM 50 MG/SENNA 8.6 MG TAB PO SCH ×2 (11:41→21:38)
--- NOTE | 2017-07-08 12:05 | HHI.CCPN ---
Subjective Remarks/Hospital Course 62-year-old gentleman who presents with complains of chest pain localized in the left lower chest, pleuritic in nature worse in the deep breath. No alleviating factors. He flew to [place] from [place] 2 days ago. No chest wall injury. Denies history of cardiac disease. Also seems worse when he lies flat. He is a chronic smoker and has a chronic smoker cough but denies productivity to the cough or fever. The CTA pulmonary embolism scan initially was read as an no pulmonary embolism, however after the second review there is a concern raised of small pulmonary embolism in the lingula, and right lower lobe consolidation consistent with pneumonia. Subjective: 07/08: No acute events overnight. O2 requirements decreased, now on nasal cannula at 3 L, no dyspnea. Pain well controlled. Patient tolerating regular diet. Objective Vital Signs Date Time Temp Pulse Resp B/P (MAP) Pulse Ox O2 Delivery O2 Flow Rate FiO2 07/08/17 10:38 96 Nasal Cannula 3.00 07/08/17 08:00 98 07/08/17 04:00 99.5 24 96/52 (67) Intake and Output 07/08/17 07/08/17 07/09/17 08:00 16:00 00:00 Intake Total 480 ml 466 ml Output Total 900 ml Balance -420 ml 466 ml Result Diagram: 07/08/17 0416 07/08/17 0416 Imaging Last 24 hours Impressions Chest X-Ray 07/06/17 [id number] Signed Impressions: Service Date/Time: Thursday, July 06, 2017 17:56 - CONCLUSION: Right infrahilar consolidation or mass. This could be from processes such as infection/ pneumonia versus underlying neoplasm. Jason Fonseca MD Objective Remarks GENERAL: Well-nourished, well-developed patient. SKIN: Warm and dry. HEAD: Normocephalic. EYES: No scleral icterus. No injection or drainage. NECK: Supple, trachea midline. No JVD or lymphadenopathy. CARDIOVASCULAR: Regular rate and rhythm without murmurs, gallops, or rubs. RESPIRATORY: Breath sounds equal bilaterally. No accessory muscle use. GASTROINTESTINAL: Abdomen soft, non-tender, nondistended. MUSCULOSKELETAL: No cyanosis, or edema. BACK: Nontender without obvious deformity. NEURO EXAM: GCS: M 6 V 5 E4 Mental Status: The patient is alert and oriented to person, place, and time with normal speech. Cranial Nerves: Visual acuity intact bilaterally. Visual loco normal in all quadrants. Pupils are round, reactive to light. Extraocular movements are intact without ptosis. Hearing is normal bilaterally. Voice is normal. Tongue protrudes midline and moves symmetrically. Reflexes: Biceps, patellar, and Achilles are 2/4 bilaterally. No clonus. A/P Assessment and Plan Pulmonary embolism - Heparin drip - F/U 2-D echo results - Troponin 0.02->0.02 - Pneumonia - Broad-spectrum antibiotics - De-escalate per sensitivity - 07/07 Panculture NGTD Hypertension - Home dose of Bystolic resumed MSK: PT evaluation and treat DVT GI prophylaxis - Teds SCDs - Heparin drip - Pepcid Dispo: Level 3 Physician Cassie Maki MD Jul 08, 2017 12:05
--- NOTE | 2017-07-08 13:11 | HHI.CCPN ---
Subjective Remarks/Hospital Course 62-year-old gentleman who presents with complains of chest pain localized in the left lower chest, pleuritic in nature worse in the deep breath. No alleviating factors. He flew to [place] from [place] 2 days ago. No chest wall injury. Denies history of cardiac disease. Also seems worse when he lies flat. He is a chronic smoker and has a chronic smoker cough but denies productivity to the cough or fever. The CTA pulmonary embolism scan initially was read as an no pulmonary embolism, however after the second review there is a concern raised of small pulmonary embolism in the lingula, and right lower lobe consolidation consistent with pneumonia. Subjective: 07/08: No acute events overnight. O2 requirements decreased, now on nasal cannula at 3 L, no dyspnea. Pain well controlled. Patient tolerating regular diet. 07/09: Tmax 99.5 .Patient up out of bed ambulating around ICU unit today on 4 L/ m nasal cannula. Objective Vital Signs Date Time Temp Pulse Resp B/P (MAP) Pulse Ox O2 Delivery O2 Flow Rate FiO2 07/08/17 10:38 96 Nasal Cannula 3.00 07/08/17 08:00 98 07/08/17 04:00 99.5 24 96/52 (67) Intake and Output 07/08/17 07/08/17 07/09/17 08:00 16:00 00:00 Intake Total 480 ml 466 ml Output Total 900 ml Balance -420 ml 466 ml Result Diagram: 07/08/17 0416 07/08/17 0416 Imaging Last 24 hours Impressions Chest X-Ray 07/06/17 [id number] Signed Impressions: Service Date/Time: Thursday, July 06, 2017 17:56 - CONCLUSION: Right infrahilar consolidation or mass. This could be from processes such as infection/ pneumonia versus underlying neoplasm. Jason Fonseca MD Objective Remarks GENERAL: Well-nourished, well-developed patient. SKIN: Warm and dry. HEAD: Normocephalic. EYES: No scleral icterus. No injection or drainage. NECK: Supple, trachea midline. No JVD or lymphadenopathy. CARDIOVASCULAR: Regular rate and rhythm without murmurs, gallops, or rubs. RESPIRATORY: Breath sounds equal bilaterally. No accessory muscle use. GASTROINTESTINAL: Abdomen soft, non-tender, nondistended. MUSCULOSKELETAL: No cyanosis, or edema. BACK: Nontender without obvious deformity. NEURO EXAM: GCS: M 6 V 5 E4 Mental Status: The patient is alert and oriented to person, place, and time with normal speech. Cranial Nerves: Visual acuity intact bilaterally. Visual loco normal in all quadrants. Pupils are round, reactive to light. Extraocular movements are intact without ptosis. Hearing is normal bilaterally. Voice is normal. Tongue protrudes midline and moves symmetrically. Reflexes: Biceps, patellar, and Achilles are 2/4 bilaterally. No clonus. A/P Assessment and Plan Pulmonary embolism - Heparin drip - 2-D echo -global hypokinesis, EF 30-35%,RWMA, severe left ventricular systolic dysfunction, right ventricle size and systolic function normal. - Troponin 0.02->0.02 - Pneumonia - Broad-spectrum antibiotics - De-escalate per sensitivity - 07/07 Panculture NGTD Hypertension - Home dose of Bystolic resumed MSK: PT evaluation and treat DVT GI prophylaxis - Teds SCDs - Heparin drip - Pepcid Dispo: Level 2 Discussed with patient and [employer] at bedside. Plan transfer to [facility] in a.m.. Plan transfer to medical surgical floor Physician Cassie Maki MD Jul 08, 2017 13:11
[2017-07-08] MEDS ORDERED: HEPARIN-D5W 25,000 U/250 ML 250 ML IV PRN (15:00)
[2017-07-08 15:59] LABS: APTT (PATIENT) 46.5 SEC (24.3-30.1)
[2017-07-08] MEDS ORDERED: POTASSIUM CHLORIDE 25 MEQ EFFERVESCENT TAB PO ONE (17:15)
[2017-07-08] MEDS: cefTRIAXone INJ 1,000 MG in SODIUM CHLORIDE 0.9% INJ 100 ML IV SCH (21:37)
[2017-07-08] MEDS: AZITHROMYCIN INJ 500 MG in SODIUM CHLOR 0.9% 250 ML INJ 250 ML IV SCH (21:39)
[2017-07-08] MEDS: ZOLPIDEM TARTRATE 5 MG TAB PO PRN (22:42)
[2017-07-08] MEDS: oxyCODONE/ACETAMINOPHEN 5 MG/325 MG TAB PO PRN (22:43)
[2017-07-09] VITALS (8 sets, daily range): BP systolic 124–133; BP diastolic 59–85; PULSE 66–100; RESP 17–24; TEMP 97.7–99.1; O2SAT 93–98
[2017-07-09 00:46] LABS: APTT (PATIENT) 37.8 SEC (24.3-30.1)
[2017-07-09] MEDS: CHLORHEXIDINE GLUCONATE 2 % 1 PACK (2 CLOTHS) TOP SCH (04:00)
[2017-07-09] MEDS: RESP: ALBUTEROL 2.5 MG/IPRATROPIUM 0.5 MG NEB (SCH) INH ×4 (04:22→21:24)
[2017-07-09] MEDS: MORPHINE SULFATE 4 MG/ML INJ IV PUSH PRN ×3 (05:31→19:42)
[2017-07-09] MEDS: AZTREONAM INJ 2,000 MG in SODIUM CHLORIDE 0.9% INJ 100 ML IV SCH ×2 (05:31→14:45)
[2017-07-09] MEDS: LEVOFLOXACIN 750 MG PREMIX INJ 150 ML IV SCH (06:00)
[2017-07-09] MEDS: NEBIVOLOL 5 MG TAB PO SCH (08:20)
[2017-07-09] MEDS: DOCUSATE SODIUM 50 MG/SENNA 8.6 MG TAB PO SCH ×2 (08:21→21:44)
[2017-07-09] MEDS: SODIUM CHLORIDE 0.9% FLUSH 10 ML FLUSH IV FLUSH SCH ×2 (08:21→21:00)
[2017-07-09] MEDS: FAMOTIDINE 20 MG/2 ML VIAL IV PUSH SCH ×2 (08:21→21:44)
[2017-07-09 09:00] LABS: HEMATOCRIT 33.4 % (39.0-51.0); MEAN CELL VOLUME 94.8 FL (80.0-100.0); MEAN CORPUSCULAR HEMOGLOBIN 31.7 PG (27.0-34.0); MEAN CORPUSCULAR HGB CONC 33.5 % (32.0-36.0); PLATELET COUNT 153 TH/MM3 (150-450); RED BLOOD COUNT 3.52 MIL/MM3 (4.50-5.90); RED CELL DISTRIBUTION WIDTH 13.8 % (11.6-17.2); REVIEW FLAG FINAL; WHITE BLOOD COUNT 10.9 TH/MM3 (4.0-11.0)
[2017-07-09 09:09] LABS: APTT (PATIENT) 42.4 SEC (24.3-30.1)
[2017-07-09 09:21] LABS: BICARBONATE 28.1 MEQ/L (21.0-32.0); POTASSIUM 3.3 MEQ/L (3.5-5.1)
[2017-07-09] MEDS ORDERED: POTASSIUM CHLORIDE 20 MEQ CONTROLLED RELEASE TAB PO ONE (15:30)
--- NOTE | 2017-07-09 16:24 | HHI.PR ---
Subjective Remarks Patient denies cp/sob sating 96 % on 2 liters nasal canula denies fevers/chills patient states has been ambulating in the hallways Objective Vitals Vital Signs Date Time Temp Pulse Resp B/P (MAP) Pulse Ox O2 Delivery O2 Flow Rate FiO2 07/09/17 15:56 96 Nasal Cannula 3.00 07/09/17 12:00 98.7 90 20 124/66 (85) 96 07/09/17 10:23 93 Nasal Cannula 3.00 07/09/17 09:00 96 Room Air 07/09/17 08:00 99.1 100 20 133/75 (94) 95 07/09/17 06:00 98.7 69 19 130/76 (94) 98 07/09/17 00:30 97.7 66 17 125/85 (98) 97 07/08/17 21:37 96 Nasal Cannula 3.00 07/08/17 20:00 97.6 102 18 143/69 (93) 96 07/08/17 20:00 Nasal Cannula 2.00 07/08/17 17:25 97.1 100 20 124/61 (82) 96 07/08/17 17:00 Room Air I/O 07/08/17 07/08/17 07/08/17 07/09/17 07/09/17 07/09/17 07:00 15:00 23:00 07:00 15:00 23:00 Intake Total 480 ml 748 ml 2100 ml Output Total 900 ml 2000 ml Balance -420 ml 748 ml 100 ml Intake Oral 480 ml 2100 ml IV Total 748 ml Output Urine Total 900 ml 2000 ml # Bowel Movements 0 0 Result Diagram: 07/09/1724 07/09/17 0824 Imaging Last Impressions Chest X-Ray 07/09/17 Signed Impressions: Service Date/Time: July 17:53 - CONCLUSION: Consolidative opacity in the left lung base with small to moderate left effusion findings are most characteristic of pneumonia. Maximus Howell MD Lower Extremity Ultrasound 07/06/17 Signed Impressions: Service Date/Time: Thursday, July 06, 2017 23:55 - CONCLUSION: No venous thrombosis of either lower extremity. Jason Jessica MD CT Angiography 07/06/17 Signed Impressions: Service Date/Time: Thursday, July 06, 2017 19:55 - CONCLUSION: 1. Suspected pulmonary embolus at the left lingula.. 2. Dense consolidation throughout the left lower lobe likely related to pneumonia. This should be followed to complete resolution to ensure no underlying lesion is present. Jason Fonseca MD Objective Remarks AAOx3 NAD S1S2 RRR, no MRG Abdomen soft, NT, ND Lungs with bronchial sounds in left lower lung field along with diminished breath sounds in the left lower lung field. The rest of the chest CTA no edema in lower extremities Medications and IVs Current Medications Medications (Trade) Dose Ordered Sig/Flaco Route Start Time Stop Time Status Last Admin (Narcan Inj) 0.4 mg UNSCH PRN IV PUSH 07/06/17 21:45 Ceftriaxone Sodium 1000 mg/ Sodium Chloride 100 ml @ 200 mls/hr Q24H IV 07/07/17 21:00 07/09/17 21:44 Azithromycin 500 mg/Sodium Chloride 250 ml @ 250 mls/hr Q24H IV 07/07/17 21:00 07/08/17 21:39 (Xanax) 0.5 mg Q8H PRN PO 07/07/17 05:15 07/07/17 21:01 (Bystolic) 5 mg DAILY PO 07/07/17 09:00 07/09/17 08:20 (NS Flush) 2 ml UNSCH PRN IV FLUSH 07/07/17 05:15 (NS Flush) 2 ml BID IV FLUSH 07/07/17 09:00 07/09/17 21:00 (Tylenol) 650 mg Q6H PRN PO 07/07/17 05:15 (Percocet 5-325 Mg) 1 tab Q4H PRN PO 07/07/17 05:15 07/09/17 21:58 (Morphine Inj) 2 mg Q2H PRN IV PUSH 07/07/17 05:15 07/09/17 19:42 (Pepcid Inj) 20 mg Q12HR IV PUSH 07/07/17 09:00 07/09/17 21:44 (Zofran Inj) 4 mg Q6H PRN IV PUSH 07/07/17 05:15 (Ambien) 5 mg HS PRN PO 07/07/17 05:15 07/09/17 21:58 (Duoneb Neb) 1 ampule Q6HR NEB INH 07/07/17 10:00 07/09/17 21:24 (Duoneb Neb) 1 ampule Q2HR NEB PRN INH 07/07/17 05:15 07/07/17 05:36 Miscellaneous Information 1 Q361D XX 07/07/17 05:15 07/07/17 05:15 (Chlorhexidine 2% Cloth) 3 pack Taper DAILY@04 TOP 07/08/17 04:00 07/04/18 03:59 (Chlorhexidine 2% Cloth) 3 pack UNSCH PRN TOP 07/07/17 05:15 (Susanne-Colace) 1 tab BID PO 07/07/17 09:00 07/09/17 21:44 (Milk Of Magnesia Liq) 30 ml Q12H PRN PO 07/07/17 05:15 (Senokot) 17.2 mg Q12H PRN PO 07/07/17 05:15 (Dulcolax Supp) 10 mg DAILY PRN RECTAL 07/07/17 05:15 (Lactulose Liq) 30 ml DAILY PRN PO 07/07/17 05:15 (Heparin Inj) 5,000 units UNSCH PRN IV PUSH 07/07/17 11:15 (Heparin Inj) 2,500 units UNSCH PRN IV PUSH 07/07/17 11:15 07/09/17 01:15 (Xarelto) 15 mg BID PO 07/09/17 21:00 07/09/17 21:44 A/P Problem List: (1) Pulmonary embolism ICD Code: I26.99 - Other pulmonary embolism without acute cor pulmonale Status: Acute (2) Haemophilus influenzae pneumonia ICD Code: J14 - Pneumonia due to Hemophilus influenzae (3) Bacteremia ICD Code: R78.81 - Bacteremia Status: Acute (4) Electrolyte abnormality ICD Code: E87.8 - Other disorders of electrolyte and fluid balance, not elsewhere classified Status: Acute Assessment and Plan Clinically improving Continue supplemental o2 Continue IV antibiotics - IV Rocephin and IV azithromycin repeat blood cultures repeat CXR advised smoking cessation ID consult Dc IV heparin - will start Xarelto 15 mg po BID today Will give Pneumovax before DC - already had influenza vaccine this year Discharge Planning Pending Id consult and clinical improvement along with ID clearance. Problem Qualifiers (1) Pulmonary embolism: Qualified Codes: I26.99 - Other pulmonary embolism without acute cor pulmonale (2) Haemophilus influenzae pneumonia: Qualified Codes: J14 - Pneumonia due to hemophilus influenzae Darian Hernandez MD Jul 09, 2017 16:24
[2017-07-09 16:48] LABS: MAGNESIUM 1.5 MG/DL (1.5-2.5)
--- NOTE | 2017-07-09 17:59 | RADRPT ---
EXAM DATE/TIME: 07/09/2017 17:53 [facility] COMPARISON: CT PULMONARY ANGIOGRAM, July 06, 2017, 19:55. CHEST SINGLE AP, July 08, 2017, 4:04. INDICATIONS : Short of breath, pneumonia with consolidation in the left lower lobe on recent CT.. MEDICAL HISTORY : None. SURGICAL HISTORY : None. ENCOUNTER: Subsequent ACUITY: 4 - 6 days PAIN SCORE: 0/10 LOCATION: Bilateral chest FINDINGS: PA and lateral views of the chest were obtained and demonstrate a small to moderate left effusion. Th ere is solid it opacity again noted in the left lower lobe. There is mild patchy opacity at the right lung base. The heart size is within normal limits. There is no perihilar edema. The bony thorax is i ntact. CONCLUSION: Consolidative opacity in the left lung base with small to moderate left effusion findings are most ch aracteristic of pneumonia. Maximus Howell MD on July 09, 2017 at 17:56 Board Certified Radiologist. This report was verified electronically.
--- NOTE | 2017-07-09 18:58 | PD.ID.CON ---
History of Present Illness Service ID Consult Requested By Dr Menezes Reason for Consult H. flu bacteremia Primary Care Physician Non-Staff Diagnoses: History of Present Illness onur is a 62 yo healthy male who presented 3 days ago with suddenonset Left - sided pleuritic chest pain few days after a 10 hr flight He was diagnosed with PE and started on anticoagulation His CTA showed suspected pulmonary embolus at the left lingula. and dense consolidation throughout the left lower lobe likely related to pneumonia He feels better and is ambulatuiing in [place] w/o SOB He also had some flu- likel symptoms prior to developpiong CP His blood clx were positive for H.influenza 2/2 Review of Systems Except as stated in HPI: all other systems reviewed are Neg Past Family Social History Allergies: Coded Allergies: NSAIDS (Non-Steroidal Anti-Inflamma (Verified Allergy, Intermediate, Swelling, 07/06/17) Penicillins (Verified Allergy, Unknown, 07/06/17) Past Medical History Hypertension Past Surgical History denies Active Ordered Medications Medications where reviewed in EMR Antibiotics Include: azithromycin CFTX Family History reviewed non contributory Social History + tobacco < 1 ppd No illicit drugs + ETOH Physical Exam Vital Signs Vital Signs Date Time Temp Pulse Resp B/P (MAP) Pulse Ox O2 Delivery O2 Flow Rate FiO2 07/09/17 16:00 98.0 100 20 133/73 (93) 94 07/09/17 15:56 96 Nasal Cannula 3.00 07/09/17 12:00 98.7 90 20 124/66 (85) 96 07/09/17 10:23 93 Nasal Cannula 3.00 07/09/17 09:00 96 Room Air 07/09/17 08:00 99.1 100 20 133/75 (94) 95 07/09/17 06:00 98.7 69 19 130/76 (94) 98 07/09/17 00:30 97.7 66 17 125/85 (98) 97 07/08/17 21:37 96 Nasal Cannula 3.00 07/08/17 20:00 97.6 102 18 143/69 (93) 96 07/08/17 20:00 Nasal Cannula 2.00 Physical Exam CONSTITUTIONAL/GENERAL: This is an adequately nourished patient, in no apparent distress. TUBES/LINES/DRAINS: SKIN: No jaundice, rashes, or lesions. Skin temperature appropriate. Not diaphoretic. HEAD: Atraumatic. Normocephalic. EYES: Pupils equal and round and reactive. Extraocular motions intact. No scleral icterus. No injection or drainage. Fundi not examined. ENT: Hearing grossly normal. Nose without bleeding or purulent drainage.Oral mucosae moist without visible erythema, exudates, masses, or lesions. NECK: Trachea midline. Supple, nontender. No palpable thyroid enlargement or nodularity. CARDIOVASCULAR: Regular rate and rhythm without murmurs, gallops, or rubs. No JVD. Peripheral pulses symmetric. RESPIRATORY/CHEST: Symmetric, unlabored respirations. Clear to auscultation. Breath sounds equal bilaterally. No wheezes, rales, or rhonchi. GASTROINTESTINAL: Abdomen soft, non-tender, nondistended. No hepato-splenomegaly , or palpable masses. No guarding. Bowel sounds present. GENITOURINARY: Without palpable bladder distension. MUSCULOSKELETAL: Extremities without clubbing, cyanosis, or edema. No joint tenderness or effusion noted. No calf tenderness. No mottling or clubbing. LYMPHATICS: No palpable cervical or supraclavicular adenopathy. NEUROLOGICAL: Awake and alert. Motor and sensory grossly within normal limits. Follows commands. Clear speech . Moves all extremities. PSYCHIATRIC: No obvious anxiety/depression. no apparent hallucinations or other psychotic thought process. Laboratory Laboratory Tests Test 07/09/17 00:17 07/09/17 08:24 Activated Partial Thromboplast Time 37.8 42.4 White Blood Count 10.9 Red Blood Count 3.52 Hemoglobin 11.2 Hematocrit 33.4 Mean Corpuscular Volume 94.8 Mean Corpuscular Hemoglobin 31.7 Mean Corpuscular Hemoglobin Concent 33.5 Red Cell Distribution Width 13.8 Platelet Count 153 Mean Platelet Volume 8.8 Blood Urea Nitrogen 10 Creatinine 0.83 Random Glucose 97 Calcium Level 8.4 Sodium Level 139 Potassium Level 3.3 Chloride Level 105 Carbon Dioxide Level 28.1 Anion Gap 6 Estimat Glomerular Filtration Rate 95 Phosphorus Level 1.3 Magnesium Level 1.5 Date/Time Source Procedure Growth Status 07/07/17 05:50 Blood Peripheral Aerobic Blood Culture - Preliminary NO GROWTH IN 2 DAYS Resulted 07/07/17 05:50 Blood Peripheral Anaerobic Blood Culture - Preliminary NO GROWTH IN 2 DAYS Resulted Result Diagram: 10/5/17 0824 10/5/17 0824 Imaging Last Impressions Chest X-Ray 07/09/17 0000 Signed Impressions: Service Date/Time: July 17:53 - CONCLUSION: Consolidative opacity in the left lung base with small to moderate left effusion findings are most characteristic of pneumonia. Maximus Howlel MD Lower Extremity Ultrasound 07/06/17 0000 Signed Impressions: Service Date/Time: Thursday, July 06, 2017 23:55 - CONCLUSION: No venous thrombosis of either lower extremity. Jason Jessica MD CT Angiography 07/06/17 0000 Signed Impressions: Service Date/Time: Thursday, July 06, 2017 19:55 - CONCLUSION: 1. Suspected pulmonary embolus at the left lingula.. 2. Dense consolidation throughout the left lower lobe likely related to pneumonia. This should be followed to complete resolution to ensure no underlying lesion is present. Jason Fonseca MD Assessment and Plan Assessment and Plan HAEMOPHILUS INFLUENZAE bacteremia - repeat blood clx negative so far - source is likely PNA Dense LLL consolidation Tobacco + Allergic reaction to PCN , tolerates cephalosporins w/o problems cont current abx - His consolidation needs to be followed to com[plete resolution anticipaote transition to oral abx Gretel Sands MD Jul 09, 2017 18:58
[2017-07-09] MEDS: cefTRIAXone INJ 1,000 MG in SODIUM CHLORIDE 0.9% INJ 100 ML IV SCH (21:44)
[2017-07-09] MEDS: RIVAROXABAN 15 MG TAB PO SCH (21:44)
[2017-07-09] MEDS: oxyCODONE/ACETAMINOPHEN 5 MG/325 MG TAB PO PRN (21:58)
[2017-07-09] MEDS: ZOLPIDEM TARTRATE 5 MG TAB PO PRN (21:58)
[2017-07-10] VITALS (9 sets, daily range): BP systolic 135–152; BP diastolic 70–89; PULSE 68–105; RESP 18–20; TEMP 97.3–100; O2SAT 92–95
[2017-07-10] MEDS: CHLORHEXIDINE GLUCONATE 2 % 1 PACK (2 CLOTHS) TOP SCH (03:23)
[2017-07-10] MEDS: RESP: ALBUTEROL 2.5 MG/IPRATROPIUM 0.5 MG NEB (SCH) INH ×2 (04:16→10:00)
[2017-07-10] MEDS: oxyCODONE/ACETAMINOPHEN 5 MG/325 MG TAB PO PRN ×5 (05:27→22:52)
[2017-07-10 06:52] LABS: HEMATOCRIT 33.2 % (39.0-51.0); MEAN CELL VOLUME 94.3 FL (80.0-100.0); MEAN CORPUSCULAR HEMOGLOBIN 31.6 PG (27.0-34.0); MEAN CORPUSCULAR HGB CONC 33.5 % (32.0-36.0); PLATELET COUNT 174 TH/MM3 (150-450); RED BLOOD COUNT 3.52 MIL/MM3 (4.50-5.90); RED CELL DISTRIBUTION WIDTH 13.5 % (11.6-17.2); REVIEW FLAG FINAL; WHITE BLOOD COUNT 7.3 TH/MM3 (4.0-11.0)
[2017-07-10] MEDS: FAMOTIDINE 20 MG/2 ML VIAL IV PUSH SCH ×2 (08:04→20:46)
[2017-07-10] MEDS: RIVAROXABAN 15 MG TAB PO SCH ×2 (08:04→20:46)
[2017-07-10] MEDS: SODIUM CHLORIDE 0.9% FLUSH 10 ML FLUSH IV FLUSH SCH ×2 (08:05→20:47)
[2017-07-10] MEDS: DOCUSATE SODIUM 50 MG/SENNA 8.6 MG TAB PO SCH ×2 (08:05→20:45)
[2017-07-10] MEDS: NEBIVOLOL 5 MG TAB PO SCH (09:20)
[2017-07-10] MEDS: ALPRAZolam 0.5 MG TAB PO PRN ×2 (11:01→18:43)
[2017-07-10] MEDS: MAGNESIUM SULFATE 1 GM PREMIX 100 ML IV SCH ×2 (13:00→14:59)
[2017-07-10 14:41] LABS: BICARBONATE 29.6 MEQ/L (21.0-32.0); POTASSIUM 3.7 MEQ/L (3.5-5.1)
--- NOTE | 2017-07-10 15:56 | HHI.PR ---
Addendum to Inpatient Note Additional Information H. influenza S to [place] to dc on oral abx (levaquine) dw Gretel Guerra MD Jul 10, 2017 15:56
[2017-07-10] MEDS ORDERED: LEVA750T9 PO (15:57)
[2017-07-10] MEDS ORDERED: PNEUMOCOCCAL POLYVALENT INJ 25 MCG/0.5 ML SYR IM ONE (17:00)
[2017-07-10] MEDS: POTASSIUM PHOSPHATE/SODIUM PHOSPHATE 250 MG TAB PO SCH ×2 (18:00→22:52)
[2017-07-10] MEDS: ZOLPIDEM TARTRATE 5 MG TAB PO PRN ×2 (20:45→22:52)
[2017-07-10] MEDS: cefTRIAXone INJ 1,000 MG in SODIUM CHLORIDE 0.9% INJ 100 ML IV SCH (20:55)
[2017-07-10] MEDS: AZITHROMYCIN INJ 500 MG in SODIUM CHLOR 0.9% 250 ML INJ 250 ML IV SCH (20:55)
[2017-07-11] VITALS: BP 129/68; PULSE 93; RESP 18; TEMP 99; O2SAT 94
--- NOTE | 2017-07-11 02:06 | HHI.DCPOC ---
Discharge Care Plan Diagnosis: (1) Pulmonary embolism (2) Haemophilus influenzae pneumonia (3) Bacteremia (4) Electrolyte abnormality Goals to Promote Your Health * To prevent worsening of your condition and complications * To maintain your health at the optimal level Directions to Meet Your Goals Take your medications as prescribed Follow your dietary instruction Follow activity as directed Keep your appointments as scheduled Take your immunizations and boosters as scheduled If your symptoms worsen call your PCP, if no PCP go to Urgent Care Center or Emergency Room Smoking is Dangerous to Your Health. Avoid second hand smoke Call the 24-hour hour crisis hotline for domestic abuse at Darian Hernandez MD Jul 11, 2017 02:06
[2017-07-11] MEDS ORDERED: XARE15TA PO (02:11)
[2017-07-11] MEDS ORDERED: XARE20TA PO (02:11)
--- NOTE | 2017-07-11 02:19 | HHI.DS ---
Discharge Summary Admission Date Jul 06, 2017 at 23:10 Discharge Date: Jul 11, 2017 Admitting Diagnosis LLL infiltrate/pneumonia; pleurisy (1) Pulmonary embolism ICD Code: I26.99 - Other pulmonary embolism without acute cor pulmonale Status: Acute (2) Haemophilus influenzae pneumonia ICD Code: J14 - Pneumonia due to Hemophilus influenzae (3) Bacteremia ICD Code: R78.81 - Bacteremia Status: Acute (4) Electrolyte abnormality ICD Code: E87.8 - Other disorders of electrolyte and fluid balance, not elsewhere classified Status: Acute Procedures none Brief History - From Admission 62-year-old gentleman who presents with complains of chest pain localized in the left lower chest, pleuritic in nature worse in the deep breath. No alleviating factors. He flew to [place] from [place] 2 days ago. No chest wall injury. Denies history of cardiac disease. Also seems worse when he lies flat. He is a chronic smoker and has a chronic smoker cough but denies productivity to the cough or fever. The CTA pulmonary embolism scan initially was read as an no pulmonary embolism, however after the second review there is a concern raised of small pulmonary embolism in the lingula, and right lower lobe consolidation consistent with pneumonia. CBC/BMP: 07/10/17 0606 07/10/17 1350 Significant Findings Laboratory Tests Test 07/08/17 04:16 07/08/17 14:30 07/09/17 00:17 07/09/17 08:24 White Blood Count 11.4 TH/MM3 (4.0-11.0) Red Blood Count 3.75 MIL/MM3 (4.50-5.90) 3.52 MIL/MM3 (4.50-5.90) Hemoglobin 12.0 GM/DL (13.0-17.0) 11.2 GM/DL (13.0-17.0) Hematocrit 36.0 % (39.0-51.0) 33.4 % (39.0-51.0) Platelet Count 138 TH/MM3 (150-450) Neutrophils (%) (Auto) 87.4 % (16.0-70.0) Neutrophils # (Auto) 9.9 TH/MM3 (1.8-7.7) Band Neutrophils % 38 % (0-6) Neutrophils # (Manual) 9.8 TH/MM3 (1.8-7.7) Platelet Estimate LOW (NORMAL) Activated Partial Thromboplast Time 84.9 SEC (24.3-30.1) 46.5 SEC (24.3-30.1) 37.8 SEC (24.3-30.1) 42.4 SEC (24.3-30.1) Total Protein 5.6 GM/DL (6.4-8.2) Albumin 2.3 GM/DL (3.4-5.0) Calcium Level 8.0 MG/DL (8.5-10.1) 8.4 MG/DL (8.5-10.1) Phosphorus Level 1.3 MG/DL (2.5-4.9) 1.3 MG/DL (2.5-4.9) Magnesium Level 1.3 MG/DL (1.5-2.5) Alkaline Phosphatase 38 U/L (45-117) Potassium Level 3.4 MEQ/L (3.5-5.1) 3.3 MEQ/L (3.5-5.1) Test 07/10/17 06:06 07/10/17 13:50 Red Blood Count 3.52 MIL/MM3 (4.50-5.90) Hemoglobin 11.1 GM/DL (13.0-17.0) Hematocrit 33.2 % (39.0-51.0) Anion Gap 4 MEQ/L (5-15) Imaging Last Impressions Chest X-Ray 07/09/17 0000 Signed Impressions: Service Date/Time: July 17:53 - CONCLUSION: Consolidative opacity in the left lung base with small to moderate left effusion findings are most characteristic of pneumonia. Maximus Howell MD Lower Extremity Ultrasound 07/06/17 Signed Impressions: Service Date/Time: Thursday, July 06, 2017 23:55 - CONCLUSION: No venous thrombosis of either lower extremity. Jason Jessica MD CT Angiography 07/06/17 Signed Impressions: Service Date/Time: Thursday, July 06, 2017 19:55 - CONCLUSION: 1. Suspected pulmonary embolus at the left lingula.. 2. Dense consolidation throughout the left lower lobe likely related to pneumonia. This should be followed to complete resolution to ensure no underlying lesion is present. Jason Fonseca MD PE at Discharge AAOx3 NAD S1S2 RRR, no MRG Abdomen soft, NT, ND Lungs with bronchial sounds in left lower lung field along with diminished breath sounds in the left lower lung field. The rest of the chest CTA no edema in lower extremities Pt update on day of discharge Patient states he feels better, however 02 sats noted to be on the lower 90's. Denies cp/sob. Ordered walk test which patient passed. Pt Condition on Discharge: Stable Discharge Disposition: Discharge Home Discharge Time: > 30 minutes Discharge Instructions DIET: Follow Instructions for: Heart Healthy Diet Activities you can perform: Regular-No Restrictions Activities to Avoid: Strenuous Activity Follow up Referrals: PCP Follow-up - 2 Weeks New Medications: Levofloxacin (Levaquin) 750 Mg Tablet 750 MG PO DAILY for Infection for 7 Days, #7 TAB 0 Refills Rivaroxaban (Xarelto) 20 Mg Tab 20 MG PO DAILY for Blood Clot Prevention, #30 TAB 0 Refills Start takin on 07/31/17 Rivaroxaban (Xarelto) 15 Mg Tab 15 MG PO BID for Blood Clot Prevention for 20 Days, #40 TAB Take until 07/30/17 after that start taking 20 mg po daily. Continued Medications: Alprazolam (Xanax) 0.5 Mg Tab 0.5 MG PO Q8H PRN for ANXIETY, TAB 0 Refills Nebivolol (Bystolic) 5 Mg Tab 5 MG PO DAILY for Blood Pressure Management, #30 TAB 0 Refills Additional Information Late entry patient seen on 07/10/17 at Darian Hernandez MD Jul 11, 2017 02:19
[2017-07-11 04:00] VITALS: BP 139/68; PULSE 101; RESP 16; TEMP 98.7; O2SAT 92
[2017-07-11] MEDS: CHLORHEXIDINE GLUCONATE 2 % 1 PACK (2 CLOTHS) TOP SCH (04:00)
== END 2017-07-11 06:42 | disposition home or self-care (01) | DRG 175 ==
LOC: PHED 17:14 → PHEDA 21:39 → INTOOBSV 21:39 → PHEDA 21:49 → UNDOADMIN 21:49 → OBSVTOIN 23:10 → N03B 07-07 03:43 → N04B 07-08 17:20
PROVIDERS: ADMIT Internal Medicine; ATTEND Internal Medicine
DX: I26.99 Other pulmonary embolism without acute cor pulmonale (principal); J14 Pneumonia due to Hemophilus influenzae; E87.8 Other disorders of electrolyte and fluid balance, not elsewhere classified; R78.81 Bacteremia; I10 Essential (primary) hypertension; F17.210 Nicotine dependence, cigarettes, uncomplicated; B96.3 Hemophilus influenzae [H. influenzae] as the cause of diseases classified elsewhere
CPT/HCPCS: 71010; 71020; 71275; 80048; 80053; 82550; 82552; 83605; 83735; 84100; 84484; 85007; 85025; 85027; 85379; 85610; 85730; 87040; 87641; 90732; 93005; 93306; 93970; 94620; 94640; 94664; 96361; 96374; 96375; J0456; J0696; J1644; J1956; J2270; J2405; J3475; J7030; J7050; Q9967